=== PATIENT | female | born 1995 | race Caucasian/White ===

== ENCOUNTER 2017-06-28 17:44 | Emergency (ER) | payer OTHER, SELFPAY ==
[2017-06-28 17:53] VITALS: BP 129/83; PULSE 103; RESP 16; TEMP 36.8; O2SAT 99; BMI 23.6
--- NOTE | 2017-06-28 18:04 | ED.FEMALEGU ---
HPI - Female Genitourinary <SURESH Nielsen - Last Filed: 06/28/17 22:23> General Chief complaint: Urogenital-Female Stated complaint: BLEEDING THROUGH FEMININE PRODUCTS QUICKLY/PAIN Time Seen by Provider: 06/28/17 17:50 Source: patient History of Present Illness HPI Narrative: 22-year-old female here for complaint of having vaginal bleeding over the past day and a half. She reports that she has went through 5 pads and or tampons today. She was worried about the amount of pads and tampons that she has went through. She also reports having pain to the left pelvic area. She denies any fevers or chills. She states that her periods have been abnormal over the past several months. She denies any nausea vomiting. Positive p.o. intake. She denies any urinary symptoms. She denies any constipation or diarrhea. No other concerns or complaints. Review of Systems <SURESH Nielsen - Last Filed: 06/28/17 22:23> Constitutional Denies chills, Denies fever(s), Denies lethargy and Denies weakness Eyes Denies change in vision, Denies eye discharge, Denies irritation and Denies loss of vision Genitourinary Reports menorrhagia, Reports dysmenorrhea and Reports pelvic pain Musculoskeletal Denies back pain, Denies muscle weakness, Denies numbness and Denies tingling Neurologic Denies loss of vision, Denies numbness, Denies tingling and Denies weakness [facility] <SURESH Nielsen - Last Filed: 06/28/17 22:23> Past Medical History [facility] Narrative: Crohn's disease Exam <SURESH Nielsen - Last Filed: 06/28/17 22:23> Const General: cooperative and well developed Nutritional Appearance: well nourished Orientation: alert, awake, oriented x3 and not confused [facility] Head: normocephalic and atraumatic Ears: external ears normal and TM's normal bilaterally Nose: external nose normal and No nasal discharge Face and sinus: sinuses nontender, face symmetric, no sinus tenderness and No dry mucous membranes Mouth: oral mucosae normal and moist mucous membranes Teeth and gingiva: dentition normal Throat: tonsils normal and uvula midline Eyes General: appearance normal, both eyes and all related structures Eyelids: eyelids normal Conjunctivae: conjunctivae normal Sclera: sclerae normal Pupils: PERRL EOM: EOM intact bilaterally Resp Effort & Inspection: normal respiratory effort, able to speak in complete sentences, no respiratory distress and no use of accessory muscles Auscultation: clear to auscultation bilaterally, no rales, no rhonchi and no wheezes Cardio Rate: regular rate Rhythm: regular rhythm Heart Sounds: no click, no gallops, no murmurs and no rubs Pulses: normal peripheral pulses GI Palpation: soft, No hernia, No mass, No pulsatile mass and tender (Tenderness to left lower quadrant/pelvic region) Auscultation: normal bowel sounds General: No CVA tenderness Skin General: no rashes or lesions noted, No jaundice and No petechiae [facility] - Female Genitourinary <SURESH Nielsen - Last Filed: 06/28/17 22:23> [facility] Narrative Medical decision making narrative: CBC and Chem panel were obtained were unremarkable. Lipase was unremarkable. Urine dip was negative for urinary tract infection and . Pelvic ultrasound was obtained and shows ruptured adnexal cyst to left ovary region. Suspect this is what is causing her pain and this is her menstrual cycle that is causing her symptoms. CT of the abdomen pelvis was obtained and was negative for any acute findings. She is stable she only had it changed her pad once while she was in the emergency room over a period of a few hours. She is encouraged to follow up with the primary care provider next week. [id number] Tylenol as needed for any discomfort. For any worsening symptoms return to the emergency room. Lab Data Result diagrams: 06/28/17 Unknown 06/28/17 19:00 Lab Results 06/28/17 06/28/17 06/28/17 Range/Units 19:00 Unknown Unknown WBC 10.2 (4.5-11.0) X10^3/uL RBC 4.76 (4.0-5.2) X10^6/uL Hgb 13.7 (12.0-16.0) g/dL Hct 39.8 (36-46) % MCV 83.5 (80-100) fL MCH 28.8 (26-34) PG MCHC 34.5 (30-36) % RDW 13.9 (11.6-14.8) % Plt Count 296 (150-400) X10^3/uL Neut % (Auto) 78.9 H (50-75) % Lymph % (Auto) 16.1 L (25-40) % [place] % (Auto) 4.2 (3-14) % Eos % (Auto) 0.4 L (2-4) % Baso % (Auto) 0.4 (0-2) % Neut # (Auto) 8000 H (1065-6830) /uL PT 12.5 (10.1-12.7) SECONDS INR 1.2 (0.9-1.3) Sodium 139 (137-145) mmol/L Potassium 3.8 (3.4-5.1) mmol/L Chloride 103.0 (98-107) mmol/L Carbon Dioxide 24.0 (22-32) mmol/L BUN 11.0 (7-17) mg/dL Creatinine 0.50 L (0.52-1.04) mg/dL Estimated GFR > 60.0 (>60) mL/min BUN/Creatinine Ratio 22.0 (6-22) Glucose 96 (70-100) mg/dL Calcium 9.3 (8.4-10.2) mg/dL Total Bilirubin 0.4 (0.2-1.3) mg/dL AST 19 (14-36) IU/L ALT 24 (9-52) IU/L Alkaline Phosphatase 71 (38-126) U/L Total Protein 7.9 (6.3-8.2) g/dL Albumin 4.5 (3.5-5.0) g/dL Globulin 3.4 (1.7-4.1) g/dL Albumin/Globulin Ratio 1.3 (1.0-2.8) Lipase 74 (23-300) U/L Imaging Data CT scan - abdomen: Radiologist's impression: PROCEDURE: CT ABDOMEN PELVIS W CON INDICATIONS: History of Crohn's and colon resection abdominal pelvic pain TECHNIQUE: After the administration of intravenous contrast, 5 mm thick sections acquired from the diaphragm to the symphysis. 5 mm coronal and sagittal reformats were acquired. For radiation dose reduction, the following was used: automated exposure control, adjustment of mA and/or kV according to patient size. COMPARISON: None. FINDINGS: Image quality: Excellent. ABDOMEN: Lung bases: Lung bases are clear. Heart size is normal. Solid organs: Liver is normal in size and enhancement. Gallbladder is within normal limits. Biliary system is non dilated. Pancreas enhances normally. Spleen is normal in size and enhancement. No adrenal nodules. Kidneys demonstrate normal size and enhancement, without hydronephrosis. Peritoneum and bowel: Bowel loops demonstrate normal wall thickness and caliber. Sutures noted in the right colon; please correlate the surgical history. The appendix is not definitely visualized, however no free fluid or inflammatory changes are noted adjacent to the cecum. No free fluid or air. Nodes and vessels: No retroperitoneal or mesenteric adenopathy by size criteria. Aorta and inferior vena cava are normal in size. Miscellaneous: No ventral hernias. PELVIS: Genitourinary: Bladder wall thickness is normal. Miscellaneous: No inguinal hernias or adenopathy. Bones: No suspicious bony lesions. No vertebral body compression fractures. IMPRESSION: 1. No acute disease process identified. 2. Postsurgical changes in the right colon. Please correlate with clinical history. 3. No free fluid or air. 4. No dilated loops of bowel. Dictated by: Sara Good MD, PhD on 06/28/2017 at 20:55 Approved by: Sara Good MD, PhD on 06/28/2017 at 20:59 pelvic us: Radiologist's impression: PROCEDURE: US PELVIC COMPLETE INDICATIONS: Pelvic pain TECHNIQUE: Real-time scanning was performed of the pelvic organs, with image documentation. Additional endovaginal scanning was necessary due to incomplete visualization of the adnexal and endometrial structures by transabdominal scanning. COMPARISON: None. FINDINGS: Transabdominal scanning: Limited scanning through the kidneys shows no hydronephrosis. No pathologic free abdominal or pelvic fluid. Endovaginal scanning: Uterus: Uterus is normal in size at 6.5 x 2.9 x 4.5 cm. The endometrium measures 2.0 mm in combined thickness. Ovaries: Right adnexa measures 2.7 x 1.9 x 1.7 cm and appears sonographically normal. Left adnexa measures 2.0 x 1.9 x 1.1 cm. There is a 0.7 x 0.6 cm ruptured follicle in the left adnexa. IMPRESSION: 1. Ruptured left adnexal cyst. 2. Otherwise, normal pelvic sonogram. Dictated by: Sara Good MD, PhD on 06/28/2017 at 20:54 Approved by: Sara Good MD, PhD on 06/28/2017 at 20:55 <Tawanna Hemphill, DO - Last Filed: 06/29/17 03:50> Lab Data Lab Results 06/28/17 06/28/17 06/28/17 Range/Units 19:00 Unknown Unknown WBC 10.2 (4.5-11.0) X10^3/uL RBC 4.76 (4.0-5.2) X10^6/uL Hgb 13.7 (12.0-16.0) g/dL Hct 39.8 (36-46) % MCV 83.5 (80-100) fL MCH 28.8 (26-34) PG MCHC 34.5 (30-36) % RDW 13.9 (11.6-14.8) % Plt Count 296 (150-400) X10^3/uL Neut % (Auto) 78.9 H (50-75) % Lymph % (Auto) 16.1 L (25-40) % [place] % (Auto) 4.2 (3-14) % Eos % (Auto) 0.4 L (2-4) % Baso % (Auto) 0.4 (0-2) % Neut # (Auto) 8000 H (8683-9336) /uL PT 12.5 (10.1-12.7) SECONDS INR 1.2 (0.9-1.3) Sodium 139 (137-145) mmol/L Potassium 3.8 (3.4-5.1) mmol/L Chloride 103.0 (98-107) mmol/L Carbon Dioxide 24.0 (22-32) mmol/L BUN 11.0 (7-17) mg/dL Creatinine 0.50 L (0.52-1.04) mg/dL Estimated GFR > 60.0 (>60) mL/min BUN/Creatinine Ratio 22.0 (6-22) Glucose 96 (70-100) mg/dL Calcium 9.3 (8.4-10.2) mg/dL Total Bilirubin 0.4 (0.2-1.3) mg/dL AST 19 (14-36) IU/L ALT 24 (9-52) IU/L Alkaline Phosphatase 71 (38-126) U/L Total Protein 7.9 (6.3-8.2) g/dL Albumin 4.5 (3.5-5.0) g/dL Globulin 3.4 (1.7-4.1) g/dL Albumin/Globulin Ratio 1.3 (1.0-2.8) Lipase 74 (23-300) U/L Course <SURESH Nielsen - Last Filed: 06/28/17 22:23> Orders Ordered: ED Orders 06/28/17 18:50 US pelvic complete Stat 06/28/17 19:00 CT abdomen pelvis w con Stat Comprehensive Metabolic Panel Stat Lipase Stat Discontinued Medications Sodium Chloride (Normal Saline 0.9%) 1,000 mls @ 1,000 mls/hr IV BOLUS ONE Stop: 06/28/17 19:59 Last Infusion: 06/28/17 21:27 Dose: 0 mls/hr Admin: 06/28/17 19:16 Dose: 1,000 mls/hr Ketorolac Tromethamine (Toradol) 30 mg IV NOW ONE Stop: 06/28/17 19:01 Last Admin: 06/28/17 19:16 Dose: 30 mg Ondansetron HCl (Zofran) 4 mg IV NOW ONE Stop: 06/28/17 20:21 Last Admin: 06/28/17 20:20 Dose: 4 mg Last Vital Signs Temp 98.2 F 06/28/17 17:53 Pulse 84 06/28/17 21:01 Resp 15 06/28/17 21:01 BP 105/54 L 06/28/17 21:01 Pulse Ox 100 06/28/17 21:01 <Tawanna Hemphill DO - Last Filed: 06/29/17 03:50> Orders Ordered: ED Orders 06/28/17 18:50 US pelvic complete Stat 06/28/17 19:00 CT abdomen pelvis w con Stat Comprehensive Metabolic Panel Stat Lipase Stat Discontinued Medications Sodium Chloride (Normal Saline 0.9%) 1,000 mls @ 1,000 mls/hr IV BOLUS ONE Stop: 06/28/17 19:59 Last Infusion: 06/28/17 21:27 Dose: 0 mls/hr Admin: 06/28/17 19:16 Dose: 1,000 mls/hr Ketorolac Tromethamine (Toradol) 30 mg IV NOW ONE Stop: 06/28/17 19:01 Last Admin: 06/28/17 19:16 Dose: 30 mg Ondansetron HCl (Zofran) 4 mg IV NOW ONE Stop: 06/28/17 20:21 Last Admin: 06/28/17 20:20 Dose: 4 mg Last Vital Signs Temp 98.2 F 06/28/17 17:53 Pulse 84 06/28/17 21:01 Resp 15 06/28/17 21:01 BP 105/54 L 06/28/17 21:01 Pulse Ox 100 06/28/17 21:01 Discharge Plan Departure Patient Disposition: Home, Self-Care Clinical Impression: Dysmenorrhea Discharge Date/Time: 06/28/17 21:50 Interventions: ED Discharge Assessment Last Done: 06/28/17 21:52 Instructions: DI for Dysmenorrhea Activity Restrictions/Additional Instructions: Pelvic ultrasound shows a ruptured cyst to the left ovary area which is consistent with ovulation and your pain. CT of the abdomen was obtained was negative for any acute findings. Laboratory results were normal. Pain related to the findings of ultrasound and also her menstrual cycle. Use [id number] Tylenol as needed for discomfort. Follow up with primary care provider next week for re-evaluation and discussion of referral to OBGYN due to irregular periods and painful periods. For any worsening symptoms return to the emergency room. Referrals: [facility] [Provider Group] <Tawanna Hemphill DO - Last Filed: 06/29/17 03:50> Sign out: I was immediately available in the department for consultation. Documentation has been reviewed. I agree with assessment and plan.
--- NOTE | 2017-06-28 18:50 | DI.US.S_ITS ---
PROCEDURE: US PELVIC COMPLETE INDICATIONS: Pelvic pain TECHNIQUE: Real-time scanning was performed of the pelvic organs, with image documentation. Additional endovaginal scanning was necessary due to incomplete visualization of the adnexal and endometrial structures by transabdominal scanning. COMPARISON: None. FINDINGS: Transabdominal scanning: Limited scanning through the kidneys shows no hydronephrosis. No pathologic free abdominal or pelvic fluid. Endovaginal scanning: Uterus: Uterus is normal in size at 6.5 x 2.9 x 4.5 cm. The endometrium measures 2.0 mm in combined thickness. Ovaries: Right adnexa measures 2.7 x 1.9 x 1.7 cm and appears sonographically normal. Left adnexa measures 2.0 x 1.9 x 1.1 cm. There is a 0.7 x 0.6 cm ruptured follicle in the left adnexa. IMPRESSION: 1. Ruptured left adnexal cyst. 2. Otherwise, normal pelvic sonogram. Dictated by: Sara Good MD, PhD on 06/28/2017 at 20:54 Approved by: Sara Good MD, PhD on 06/28/2017 at 20:55
--- NOTE | 2017-06-28 19:00 | DI.CT.S_ITS ---
PROCEDURE: CT ABDOMEN PELVIS W CON INDICATIONS: History of Crohn's and colon resection abdominal pelvic pain TECHNIQUE: After the administration of intravenous contrast, 5 mm thick sections acquired from the diaphragm to the symphysis. 5 mm coronal and sagittal reformats were acquired. For radiation dose reduction, the following was used: automated exposure control, adjustment of mA and/or kV according to patient size. COMPARISON: None. FINDINGS: Image quality: Excellent. ABDOMEN: Lung bases: Lung bases are clear. Heart size is normal. Solid organs: Liver is normal in size and enhancement. Gallbladder is within normal limits. Biliary system is non dilated. Pancreas enhances normally. Spleen is normal in size and enhancement. No adrenal nodules. Kidneys demonstrate normal size and enhancement, without hydronephrosis. Peritoneum and bowel: Bowel loops demonstrate normal wall thickness and caliber. Sutures noted in the right colon; please correlate the surgical history. The appendix is not definitely visualized, however no free fluid or inflammatory changes are noted adjacent to the cecum. No free fluid or air. Nodes and vessels: No retroperitoneal or mesenteric adenopathy by size criteria. Aorta and inferior vena cava are normal in size. Miscellaneous: No ventral hernias. PELVIS: Genitourinary: Bladder wall thickness is normal. Miscellaneous: No inguinal hernias or adenopathy. Bones: No suspicious bony lesions. No vertebral body compression fractures. IMPRESSION: 1. No acute disease process identified. 2. Postsurgical changes in the right colon. Please correlate with clinical history. 3. No free fluid or air. 4. No dilated loops of bowel. Dictated by: Sara Good MD, PhD on 06/28/2017 at 20:55 Approved by: Sara Good MD, PhD on 06/28/2017 at 20:59
[2017-06-28] MEDS: KETOROLAC 60 MG/2 ML VIAL 30 MG IV (19:16)
[2017-06-28] MEDS: SODIUM CHLORIDE 0.9% 1,000 ML 1000 ML IV (19:16)
--- NOTE | 2017-06-28 19:20 | PC.NURSE ---
pt reports, hx of colitis, irregular menses. today with vaginal bleeding dark blood with clots, heavier, frequent tampon changes, with abdominal/pelvic pain, with radiaiting pain to the back, denies fever at home, denies vomiting, had normal bm today.
[2017-06-28 19:58] LABS: Add Manual Diff / Slide Review NO; Basophils Percent Auto 0.4 % (0-2); Eosinophils Percent Auto 0.4 % (2-4); Hematocrit 39.8 % (36-46); Hemoglobin 13.7 g/dL (12.0-16.0); Lymphocytes Percent Auto 16.1 % (25-40); Mean Corpuscular HGB Conc 34.5 % (30-36); Mean Corpuscular Hemoglobin 28.8 PG (26-34); Mean Corpuscular Volume 83.5 fL (80-100); Monocytes Percent Auto 4.2 % (3-14); Neutrophils Absolute Auto 8000 /uL (3000-5900); Neutrophils Percent Auto 78.9 % (50-75); Platelet Count 296 X10^3/uL (150-400); Red Blood Cell Count 4.76 X10^6/uL (4.0-5.2); Red Cell Distribution Width 13.9 % (11.6-14.8); White Blood Cell Count 10.2 X10^3/uL (4.5-11.0)
[2017-06-28 20:02] LABS: INR 1.2 (0.9-1.3); Prothrombin Time 12.5 SECONDS (10.1-12.7)
[2017-06-28 20:17] LABS: Alanine Aminotransferase 24 IU/L (9-52); Albumin 4.5 g/dL (3.5-5.0); Albumin Globulin Ratio 1.3 (1.0-2.8); Alkaline Phosphatase 71 U/L (38-126); Aspartate Aminotransferase 19 IU/L (14-36); Bilirubin Total 0.4 mg/dL (0.2-1.3); Calcium 9.3 mg/dL (8.4-10.2); Estimated Glomerular Filt Rate > 60.0 mL/min (>60); Globulin 3.4 g/dL (1.7-4.1); Glucose 96 mg/dL (70-100); HEMOLYSIS < 15 (0-50); Lipase 74 U/L (23-300); Potassium 3.8 mmol/L (3.4-5.1); Sodium 139 mmol/L (137-145); Total Protein 7.9 g/dL (6.3-8.2)
[2017-06-28] MEDS: ONDANSETRON 4 MG/2 ML INJ IV (20:20)
[2017-06-28 21:01] VITALS: BP 105/54; PULSE 84; RESP 15; O2SAT 100
--- NOTE | 2017-06-28 21:35 | ED_ITS ---
HPI - Female Genitourinary <SURESH Nielsen - Last Filed: 06/28/17 22:23> General Chief complaint: Urogenital-Female Stated complaint: BLEEDING THROUGH FEMININE PRODUCTS QUICKLY/PAIN Time Seen by Provider: 06/28/17 17:50 Source: patient History of Present Illness HPI Narrative: 22-year-old female here for complaint of having vaginal bleeding over the past day and a half. She reports that she has went through 5 pads and or tampons today. She was worried about the amount of pads and tampons that she has went through. She also reports having pain to the left pelvic area. She denies any fevers or chills. She states that her periods have been abnormal over the past several months. She denies any nausea vomiting. Positive p.o. intake. She denies any urinary symptoms. She denies any constipation or diarrhea. No other concerns or complaints. Review of Systems <SURESH Nielsen - Last Filed: 06/28/17 22:23> Constitutional Denies chills, Denies fever(s), Denies lethargy and Denies weakness Eyes Denies change in vision, Denies eye discharge, Denies irritation and Denies loss of vision Genitourinary Reports menorrhagia, Reports dysmenorrhea and Reports pelvic pain Musculoskeletal Denies back pain, Denies muscle weakness, Denies numbness and Denies tingling Neurologic Denies loss of vision, Denies numbness, Denies tingling and Denies weakness [facility] <SURESH Nielsen - Last Filed: 06/28/17 22:23> Past Medical History [facility] Narrative: Crohn's disease Exam <SURESH Nielsen - Last Filed: 06/28/17 22:23> Const General: cooperative and well developed Nutritional Appearance: well nourished Orientation: alert, awake, oriented x3 and not confused [facility] Head: normocephalic and atraumatic Ears: external ears normal and TM's normal bilaterally Nose: external nose normal and No nasal discharge Face and sinus: sinuses nontender, face symmetric, no sinus tenderness and No dry mucous membranes Mouth: oral mucosae normal and moist mucous membranes Teeth and gingiva: dentition normal Throat: tonsils normal and uvula midline Eyes General: appearance normal, both eyes and all related structures Eyelids: eyelids normal Conjunctivae: conjunctivae normal Sclera: sclerae normal Pupils: PERRL EOM: EOM intact bilaterally Resp Effort & Inspection: normal respiratory effort, able to speak in complete sentences, no respiratory distress and no use of accessory muscles Auscultation: clear to auscultation bilaterally, no rales, no rhonchi and no wheezes Cardio Rate: regular rate Rhythm: regular rhythm Heart Sounds: no click, no gallops, no murmurs and no rubs Pulses: normal peripheral pulses GI Palpation: soft, No hernia, No mass, No pulsatile mass and tender (Tenderness to left lower quadrant/pelvic region) Auscultation: normal bowel sounds General: No CVA tenderness Skin General: no rashes or lesions noted, No jaundice and No petechiae [facility] - Female Genitourinary <SURESH Nielsen - Last Filed: 06/28/17 22:23> [facility] Narrative Medical decision making narrative: CBC and Chem panel were obtained were unremarkable. Lipase was unremarkable. Urine dip was negative for urinary tract infection and . Pelvic ultrasound was obtained and shows ruptured adnexal cyst to left ovary region. Suspect this is what is causing her pain and this is her menstrual cycle that is causing her symptoms. CT of the abdomen pelvis was obtained and was negative for any acute findings. She is stable she only had it changed her pad once while she was in the emergency room over a period of a few hours. She is encouraged to follow up with the primary care provider next week. [id number] Tylenol as needed for any discomfort. For any worsening symptoms return to the emergency room. Lab Data Result diagrams: 06/28/17 Unknown 06/28/17 19:00 Lab Results 06/28/17 06/28/17 06/28/17 Range/Units 19:00 Unknown Unknown WBC 10.2 (4.5-11.0) X10^3/uL RBC 4.76 (4.0-5.2) X10^6/uL Hgb 13.7 (12.0-16.0) g/dL Hct 39.8 (36-46) % MCV 83.5 (80-100) fL MCH 28.8 (26-34) PG MCHC 34.5 (30-36) % RDW 13.9 (11.6-14.8) % Plt Count 296 (150-400) X10^3/uL Neut % (Auto) 78.9 H (50-75) % Lymph % (Auto) 16.1 L (25-40) % Liberty % (Auto) 4.2 (3-14) % Eos % (Auto) 0.4 L (2-4) % Baso % (Auto) 0.4 (0-2) % Neut # (Auto) 8000 H (6564-5881) /uL PT 12.5 (10.1-12.7) SECONDS INR 1.2 (0.9-1.3) Sodium 139 (137-145) mmol/L Potassium 3.8 (3.4-5.1) mmol/L Chloride 103.0 (98-107) mmol/L Carbon Dioxide 24.0 (22-32) mmol/L BUN 11.0 (7-17) mg/dL Creatinine 0.50 L (0.52-1.04) mg/dL Estimated GFR > 60.0 (>60) mL/min BUN/Creatinine Ratio 22.0 (6-22) Glucose 96 (70-100) mg/dL Calcium 9.3 (8.4-10.2) mg/dL Total Bilirubin 0.4 (0.2-1.3) mg/dL AST 19 (14-36) IU/L ALT 24 (9-52) IU/L Alkaline Phosphatase 71 (38-126) U/L Total Protein 7.9 (6.3-8.2) g/dL Albumin 4.5 (3.5-5.0) g/dL Globulin 3.4 (1.7-4.1) g/dL Albumin/Globulin Ratio 1.3 (1.0-2.8) Lipase 74 (23-300) U/L Imaging Data CT scan - abdomen: Radiologist's impression: PROCEDURE: CT ABDOMEN PELVIS W CON INDICATIONS: History of Crohn's and colon resection abdominal pelvic pain TECHNIQUE: After the administration of intravenous contrast, 5 mm thick sections acquired from the diaphragm to the symphysis. 5 mm coronal and sagittal reformats were acquired. For radiation dose reduction, the following was used: automated exposure control, adjustment of mA and/or kV according to patient size. COMPARISON: None. FINDINGS: Image quality: Excellent. ABDOMEN: Lung bases: Lung bases are clear. Heart size is normal. Solid organs: Liver is normal in size and enhancement. Gallbladder is within normal limits. Biliary system is non dilated. Pancreas enhances normally. Spleen is normal in size and enhancement. No adrenal nodules. Kidneys demonstrate normal size and enhancement, without hydronephrosis. Peritoneum and bowel: Bowel loops demonstrate normal wall thickness and caliber. Sutures noted in the right colon; please correlate the surgical history. The appendix is not definitely visualized, however no free fluid or inflammatory changes are noted adjacent to the cecum. No free fluid or air. Nodes and vessels: No retroperitoneal or mesenteric adenopathy by size criteria. Aorta and inferior vena cava are normal in size. Miscellaneous: No ventral hernias. PELVIS: Genitourinary: Bladder wall thickness is normal. Miscellaneous: No inguinal hernias or adenopathy. Bones: No suspicious bony lesions. No vertebral body compression fractures. IMPRESSION: 1. No acute disease process identified. 2. Postsurgical changes in the right colon. Please correlate with clinical history. 3. No free fluid or air. 4. No dilated loops of bowel. Dictated by: Sara Good MD, PhD on 06/28/2017 at 20:55 Approved by: Sara Good MD, PhD on 06/28/2017 at 20:59 pelvic us: Radiologist's impression: PROCEDURE: US PELVIC COMPLETE INDICATIONS: Pelvic pain TECHNIQUE: Real-time scanning was performed of the pelvic organs, with image documentation. Additional endovaginal scanning was necessary due to incomplete visualization of the adnexal and endometrial structures by transabdominal scanning. COMPARISON: None. FINDINGS: Transabdominal scanning: Limited scanning through the kidneys shows no hydronephrosis. No pathologic free abdominal or pelvic fluid. Endovaginal scanning: Uterus: Uterus is normal in size at 6.5 x 2.9 x 4.5 cm. The endometrium measures 2.0 mm in combined thickness. Ovaries: Right adnexa measures 2.7 x 1.9 x 1.7 cm and appears sonographically normal. Left adnexa measures 2.0 x 1.9 x 1.1 cm. There is a 0.7 x 0.6 cm ruptured follicle in the left adnexa. IMPRESSION: 1. Ruptured left adnexal cyst. 2. Otherwise, normal pelvic sonogram. Dictated by: Sara Good MD, PhD on 06/28/2017 at 20:54 Approved by: Sara Good MD, PhD on 06/28/2017 at 20:55 <Tawanna Hemphill, DO - Last Filed: 06/29/17 03:50> Lab Data Lab Results 06/28/17 06/28/17 06/28/17 Range/Units 19:00 Unknown Unknown WBC 10.2 (4.5-11.0) X10^3/uL RBC 4.76 (4.0-5.2) X10^6/uL Hgb 13.7 (12.0-16.0) g/dL Hct 39.8 (36-46) % MCV 83.5 (80-100) fL MCH 28.8 (26-34) PG MCHC 34.5 (30-36) % RDW 13.9 (11.6-14.8) % Plt Count 296 (150-400) X10^3/uL Neut % (Auto) 78.9 H (50-75) % Lymph % (Auto) 16.1 L (25-40) % Liberty % (Auto) 4.2 (3-14) % Eos % (Auto) 0.4 L (2-4) % Baso % (Auto) 0.4 (0-2) % Neut # (Auto) 8000 H (4457-2192) /uL PT 12.5 (10.1-12.7) SECONDS INR 1.2 (0.9-1.3) Sodium 139 (137-145) mmol/L Potassium 3.8 (3.4-5.1) mmol/L Chloride 103.0 (98-107) mmol/L Carbon Dioxide 24.0 (22-32) mmol/L BUN 11.0 (7-17) mg/dL Creatinine 0.50 L (0.52-1.04) mg/dL Estimated GFR > 60.0 (>60) mL/min BUN/Creatinine Ratio 22.0 (6-22) Glucose 96 (70-100) mg/dL Calcium 9.3 (8.4-10.2) mg/dL Total Bilirubin 0.4 (0.2-1.3) mg/dL AST 19 (14-36) IU/L ALT 24 (9-52) IU/L Alkaline Phosphatase 71 (38-126) U/L Total Protein 7.9 (6.3-8.2) g/dL Albumin 4.5 (3.5-5.0) g/dL Globulin 3.4 (1.7-4.1) g/dL Albumin/Globulin Ratio 1.3 (1.0-2.8) Lipase 74 (23-300) U/L Course <SURESH Nielsen - Last Filed: 06/28/17 22:23> Orders Ordered: ED Orders 06/28/17 18:50 US pelvic complete Stat 06/28/17 19:00 CT abdomen pelvis w con Stat Comprehensive Metabolic Panel Stat Lipase Stat Discontinued Medications Sodium Chloride (Normal Saline 0.9%) 1,000 mls @ 1,000 mls/hr IV BOLUS ONE Stop: 06/28/17 19:59 Last Infusion: 06/28/17 21:27 Dose: 0 mls/hr Admin: 06/28/17 19:16 Dose: 1,000 mls/hr Ketorolac Tromethamine (Toradol) 30 mg IV NOW ONE Stop: 06/28/17 19:01 Last Admin: 06/28/17 19:16 Dose: 30 mg Ondansetron HCl (Zofran) 4 mg IV NOW ONE Stop: 06/28/17 20:21 Last Admin: 06/28/17 20:20 Dose: 4 mg Last Vital Signs Temp 98.2 F 06/28/17 17:53 Pulse 84 06/28/17 21:01 Resp 15 06/28/17 21:01 BP 105/54 L 06/28/17 21:01 Pulse Ox 100 06/28/17 21:01 <Tawanna Hemphill DO - Last Filed: 06/29/17 03:50> Orders Ordered: ED Orders 06/28/17 18:50 US pelvic complete Stat 06/28/17 19:00 CT abdomen pelvis w con Stat Comprehensive Metabolic Panel Stat Lipase Stat Discontinued Medications Sodium Chloride (Normal Saline 0.9%) 1,000 mls @ 1,000 mls/hr IV BOLUS ONE Stop: 06/28/17 19:59 Last Infusion: 06/28/17 21:27 Dose: 0 mls/hr Admin: 06/28/17 19:16 Dose: 1,000 mls/hr Ketorolac Tromethamine (Toradol) 30 mg IV NOW ONE Stop: 06/28/17 19:01 Last Admin: 06/28/17 19:16 Dose: 30 mg Ondansetron HCl (Zofran) 4 mg IV NOW ONE Stop: 06/28/17 20:21 Last Admin: 06/28/17 20:20 Dose: 4 mg Last Vital Signs Temp 98.2 F 06/28/17 17:53 Pulse 84 06/28/17 21:01 Resp 15 06/28/17 21:01 BP 105/54 L 06/28/17 21:01 Pulse Ox 100 06/28/17 21:01 Discharge Plan Departure Patient Disposition: Home, Self-Care Clinical Impression: Dysmenorrhea Discharge Date/Time: 06/28/17 21:50 Interventions: ED Discharge Assessment Last Done: 06/28/17 21:52 Instructions: DI for Dysmenorrhea Activity Restrictions/Additional Instructions: Pelvic ultrasound shows a ruptured cyst to the left ovary area which is consistent with ovulation and your pain. CT of the abdomen was obtained was negative for any acute findings. Laboratory results were normal. Pain related to the findings of ultrasound and also her menstrual cycle. Use over-the- counter Tylenol as needed for discomfort. Follow up with primary care provider next week for re-evaluation and discussion of referral to OBGYN due to irregular periods and painful periods. For any worsening symptoms return to the emergency room. Referrals: [facility] [Provider Group] <Tawanna Hemphill DO - Last Filed: 06/29/17 03:50> Sign out: I was immediately available in the department for consultation. Documentation has been reviewed. I agree with assessment and plan.
== END 2017-06-28 21:50 | disposition home or self-care (01) ==
PROVIDERS: Emergency Provider Nurse Practitioner Family
DX: N94.6 Dysmenorrhea, unspecified (principal)
CPT/HCPCS: 36591; 74177; 76830; 76856; 80053; 81003; 81025; 83690; 85025; 85610; 96361; 96374; 96375; 99283; 99284; J1885; J2405; Q9967